=== PATIENT | female | born 1995 | race American Indian/Alaskan Native ===

== ENCOUNTER 2019-03-10 10:35 | Outpatient (CLI) | payer OTHER ==
[2019-03-10 12:04] LABS: Bilirubin,Urine NEG (Negative); Blood,Urine NEG (Negative); Color,Urine Yellow (Yellow); Protein,Urine <15 mg/dL mg/dL (Negative); RBC,Urine < 1.0 /HPF (0.0-6.0); Urobilinogen,Urine < 2.0 mg/dL (<2.0)
[2019-03-10 13:02] VITALS: BP 112/68
--- NOTE | 2019-03-10 15:09 | Ultrasound Report ---
OB ULTRASOUND History: Vaginal bleeding. Technique: Transabdominal ultrasound with Doppler interrogation. Gestation: Single Position: Breech Amniotic Fluid: Normal CRISTIAN = 18.4 cm Placenta: Posterior Placental Grade: 1 Heart Rate: 150 BPM Cervical length: 4.8 cm (Normal > 3 cm) It is too early for a anatomical survey NEUROANATOMY VISUALIZED: Choroid Plexus Cisterna Magnum Cerebellum Lateral Ventricle ANATOMY VISUALIZED: Stomach Kidneys Bladder Diaphragm 4 Chamber Heart Heart 3 Vessel Cord Abd. Cord Insert SPINE VISUALIZED: Longitudinal BPD: 6.4 cm = 25 w 5 d HC: 22.3 cm = 24 w 2 d AC: 21.2 cm = 25 w 5 d FL: 5.1 cm = 27 w 2 d HC/AC Ratio: 1.05 Cephalic Index: 55.0 Estimated Weight: 895 grams LMP: 09/09/18 Clinical age = 26 w 0 d EDC: 06/16/19 US Gest. Age = 25 w 5 d EDC: 06/18/19 IMPRESSION: Viable, single intrauterine as described. No evidence for abruption.
== END 2019-03-10 15:00 | disposition home or self-care (01) ==
LOC: TRG 10:35
PROVIDERS: ATTEND Obstetrics & Gynecology
DX: O47.02 False labor before 37 completed weeks of gestation, second trimester (principal); Z3A.26 26 weeks gestation of pregnancy
CPT/HCPCS: 76805; 81001

== ENCOUNTER 2019-03-27 08:16 | Outpatient (CLI) | payer OTHER ==
[2019-03-27] MEDS ORDERED: LACTATED RINGERS 500 ML IV ONE (08:29)
[2019-03-27 10:42] LABS: Bilirubin,Urine NEG (Negative); Blood,Urine NEG (Negative); Color,Urine Yellow (Yellow); Mucus,Urine 1+ /HPF; Protein,Urine <15 mg/dL mg/dL (Negative); WBC,Urine < 1.0 /HPF (0.0-6.0)
[2019-03-27] MEDS ORDERED: ZOFRAN IV ONE (11:41)
== END 2019-03-27 12:28 | disposition home or self-care (01) ==
LOC: TRG 08:16
PROVIDERS: ATTEND Obstetrics & Gynecology
DX: O62.9 Abnormality of forces of labor, unspecified (principal); O21.2 Late vomiting of pregnancy; Z3A.28 28 weeks gestation of pregnancy
CPT/HCPCS: 81001; 96365; J2405

== ENCOUNTER 2019-03-29 02:30 | Outpatient (CLI) | payer OTHER ==
[2019-03-29 03:01] VITALS: BP 122/66
[2019-03-29] MEDS ORDERED: LACTATED RINGERS 500 ML IV ONE (03:03)
[2019-03-29] MEDS ORDERED: ZOFRAN IV ONE (03:20)
[2019-03-29 04:34] LABS: Mean Corpuscular HGB Conc 34 % (30-34); Mean Corpuscular Volume 88 fl (79-97); Platelet Count 357 K/mm3 (140-440); Red Blood Count 3.99 M/mm3 (3.65-5.03); Red Cell Distribution Width 13.5 % (13.2-15.2)
[2019-03-29 04:52] LABS: Alanine Aminotransferase 11 units/L (7-56); Albumin 3.9 g/dL (3.9-5); BUN/Creatinine Ratio 10; Blood Urea Nitrogen 5 mg/dL (7-17); Hemolysis Index 3
== END 2019-03-29 07:01 | disposition home or self-care (01) ==
LOC: TRG 02:30
PROVIDERS: ATTEND Obstetrics & Gynecology
DX: O21.2 Late vomiting of pregnancy (principal); O26.893 Other specified pregnancy related conditions, third trimester; R19.7 Diarrhea, unspecified; Z3A.28 28 weeks gestation of pregnancy
CPT/HCPCS: 36415; 80053; 82150; 83690; 85027; 96374; J2405; J7120; 96360; 96361